=== PATIENT | female | born 1965 | race Caucasian/White ===

== ENCOUNTER 2018-10-17 08:07 | Day surgery (SDC) | payer BC ==
[2018-10-16 14:44] LABS: CHLORIDE,CL 104 mmol/L (98-107); SODIUM,NA 141 mmol/L (136-145)
[~2018-10-17 08:07] MED LIST: Fluorescein 5 ML Vial ONE; Lactated Ringers 1,000 ML IV SCH; Sodium Chloride 0.9% 10 ML SDV IV PRN; Sodium Chloride 0.9% 10 ML Syringe FLUSH PRN; Sodium Chloride 0.9% 2.5 ML Syringe FLUSH PRN; ceFAZolin 2 GM in Premix Bag 1 BAG IV ONE
[2018-10-17] MEDS ORDERED: Propofol 200 MG/20 ML SDV ONE ×2 (09:09→11:49)
[2018-10-17] MEDS ORDERED: fentaNYL 100 MCG/2 ML SDV ONE ×3 (09:10→11:58)
[2018-10-17] MEDS ORDERED: Midazolam 1 MG/ML 2 ML SDV ONE (09:10)
--- NOTE | 2018-10-17 09:35 | PCM.PREANE ---
Preanesthetic Assessment - Anesthesia/Transfusion/Family Hx Anesthesia History: Prior Anesthesia Without Reaction Family History of Anesthesia Reaction: No Transfusion History: No Prior Transfusion(s) - Review of Systems General: No Symptoms Pulmonary: No Symptoms Cardiovascular: No Symptoms Gastrointestinal: No Symptoms Neurological: No Symptoms Other: Reports: None - Physical Assessment NPO Status Date: 10/16/18 NPO Status Time: 20:00 O2 Sat by Pulse Oximetry: 96 Respiratory Rate: 18 Vital Signs: Last Vital Signs Temp 96.8 F 10/17/18 08:45 Pulse 86 10/17/18 08:45 Resp 18 10/17/18 08:45 BP 141/71 H 10/17/18 08:45 Pulse Ox 96 10/17/18 08:45 Height: 5 ft 7 in Weight: 97.069 kg ASA Class: 1 Mental Status: Alert & Oriented x3 Airway Class: Mallampati = 1 Dentition: Reports: Normal Dentition ROM/Head Extension: Full Lungs: Clear to Auscultation, Normal Respiratory Effort Cardiovascular: Regular Rate, Regular Rhythm - Lab Values: Laboratory Last Values WBC 4.55 K/uL (4.0-11.0) 10/16/18 14:05 RBC 4.93 M/uL (4.30-5.90) 10/16/18 14:05 Hgb 15.2 g/dL (12.0-16.0) 10/16/18 14:05 Hct 44.9 % (36.0-46.0) 10/16/18 14:05 MCV 91.1 fL (80.0-98.0) 10/16/18 14:05 MCH 30.8 pg (27.0-32.0) 10/16/18 14:05 MCHC 33.9 g/dL (31.0-37.0) 10/16/18 14:05 RDW Std Deviation 42.7 fl (28.0-62.0) 10/16/18 14:05 RDW Coeff of Eder 13 % (11.0-15.0) 10/16/18 14:05 Plt Count 225 K/uL (150-400) 10/16/18 14:05 MPV 9.90 fL (7.40-12.00) 10/16/18 14:05 Nucleated RBC % 0.0 /100WBC 10/16/18 14:05 Nucleated RBCs # 0 K/uL 10/16/18 14:05 Sodium 141 mmol/L (136-145) 10/16/18 14:05 Potassium 4.3 mmol/L (3.5-5.1) 10/16/18 14:05 Chloride 104 mmol/L (98-107) 10/16/18 14:05 Carbon Dioxide 25.5 mmol/L (21.0-32.0) 10/16/18 14:05 BUN 19 mg/dL (7.0-18.0) H 10/16/18 14:05 Creatinine 0.8 mg/dL (0.6-1.0) 10/16/18 14:05 Est Cr Clr Drug Dosing 80.90 mL/min 10/16/18 14:05 Estimated GFR (MDRD) > 60.0 ml/min 10/16/18 14:05 Glucose 92 mg/dL (74-106) 10/16/18 14:05 Calcium 8.2 mg/dL (8.5-10.1) L 10/16/18 14:05 HCG, Qual NEGATIVE (NEG) 10/16/18 14:05 Blood Type A POSITIVE 10/16/18 14:05 Antibody Screen NEGATIVE 10/16/18 14:05 - Allergies Allergies/Adverse Reactions: Allergies Allergy/AdvReac Type Severity Reaction Status Date / Time shrimp Allergy Difficulty Verified 10/14/18 09:53 Swallowing - Blood Blood Available: No - Anesthesia Plan Pre-Op Medication Ordered: None - Acknowledgements Anesthesia Type Planned: General Anesthesia Pt an Appropriate Candidate for the Planned Anesthesia: Yes Alternatives and Risks of Anesthesia Discussed w Pt/Guardian: Yes Pt/Guardian Understands and Agrees with Anesthesia Plan: Yes PreAnesthesia Questionnaire HEENT History: Reports: Other (See Below) Other HEENT History: wears glasses/contact lenses Cardiovascular History: Reports: None Respiratory History: Reports: None Gastrointestinal History: Reports: GERD Genitourinary History: Reports: Urinary Incontinence 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: Musculoskeletal History: Reports: Fracture Other Musculoskeletal History: hx fx left tib/fib Neurological History: Reports: None Psychiatric History: Reports: None Endocrine/Metabolic History: Reports: Obesity/BMI 30+ Hematologic History: Reports: None Immunologic History: Reports: None Oncologic (Cancer) History: Reports: None Dermatologic History: Reports: None - Infectious Disease History Infectious Disease History: Reports: None - Past Surgical History Head Surgeries/Procedures: Reports: None Cardiovascular Surgical History: Reports: None Respiratory Surgical History: Reports: None GI Surgical History: Reports: None Female Surgical History: Reports: Section, Hysterectomy, Salpingo- Oophorectomy Other Female Surgeries/Procedures: [id number] of enterocele/rectocele in Jul Endocrine Surgical History: Reports: None Neurological Surgical History: Reports: None Musculoskeletal Surgical History: Reports: ORIF Other Musculoskeletal Surgeries/Procedures:: states hx of left tib/fib fx, surgical repair with hardware inserted Oncologic Surgical History: Reports: None Dermatological Surgical History: Reports: None - SUBSTANCE USE Smoking Status *Q: Never Smoker Recreational Drug Use History: No - HOME MEDS Home Medications: Home Meds Estradiol 1 mg PO DAILY 04/05/16 [History] Multivitamin [Multivitamins] 1 tab PO DAILY 04/05/16 [History] Tolterodine [Detrol LA 24 Hr] 4 mg PO DAILY 04/05/16 [History] - CURRENT (IN HOUSE) MEDS Current Meds: Current Medications Lactated Ringer's (Ringers, Lactated) 1,000 mls @ 100 mls/hr IV ASDIRECTED DORIE Last Admin: 10/17/18 09:00 Dose: 100 mls/hr Sodium Chloride (Saline Flush) 10 ml FLUSH ASDIRECTED PRN PRN Reason: Keep Vein Open Sodium Chloride (Saline Flush) 2.5 ml FLUSH ASDIRECTED PRN PRN Reason: Keep Vein Open Sodium Chloride (Normal Saline) 10 ml IV ASDIRECTED PRN PRN Reason: IV Use Discontinued Medications Fentanyl (Sublimaze) Confirm Administered Dose 100 mcg .ROUTE .STK-MED ONE Stop: 10/17/18 09:11 Fluorescein Sodium (Ak-Fluor) Confirm Administered Dose 5 ml .ROUTE .STK-MED ONE Stop: 10/17/18 08:08 Cefazolin Sodium/Dextrose 2 gm (/ Premix) 50 mls @ 100 mls/hr IV ONETIME ONE Stop: 10/16/18 13:57 Midazolam HCl (Versed 1 Mg/Ml) Confirm Administered Dose 2 mg .ROUTE .STK-MED ONE Stop: 10/17/18 09:11 Propofol (Diprivan 20 Ml) Confirm Administered Dose 200 mg .ROUTE .STK-MED ONE Stop: 10/17/18 09:10
[2018-10-17] MEDS ORDERED: Dexamethasone 4 MG/ML 5 ML MDV ONE (10:47)
[2018-10-17] MEDS ORDERED: Ondansetron 4 MG/2 ML SDV IVPUSH PRN (12:23)
[2018-10-17] MEDS ORDERED: Acetaminophen/oxyCODONE 325-5 MG Tab PO PRN (12:23)
[2018-10-17] MEDS ORDERED: Promethazine 25 MG/ML SDV IM PRN (12:23)
[2018-10-17] MEDS ORDERED: Ketorolac 30 MG/ML SDV IVPUSH ONE (12:23)
[2018-10-17] MEDS ORDERED: Morphine 4 MG/ML Syringe IVPUSH PRN (12:23)
[2018-10-17] MEDS ORDERED: Ketorolac 30 MG/ML SDV IVPUSH PRN (12:23)
--- NOTE | 2018-10-17 12:28 | PCM.OPNOTE ---
- General Post-Op/Procedure Note Date of Surgery/Procedure: 10/17/18 Operative Procedure(s): Ant and Post Repair cystoscopy. Post-Op Diagnosis: Same Anesthesia Technique: General ET Tube Primary Surgeon: Donnell Duggan EBL in mLs: 600 Complications: None Condition: Good Free Text/Narrative:: Intake & Output 10/16/18 10/17/18 10/17/18 22:59 06:59 14:59 Output Total 150 Balance -150
--- NOTE | 2018-10-17 14:37 | PCM.POSTAN ---
POST ANESTHESIA ASSESSMENT - MENTAL STATUS Mental Status: Alert, Oriented - CARDIOVASCULAR CV Status: Pulse Rate WNL, Blood Pressure Stable - GASTROINTESTINAL GI Status: No Symptoms - POST OP HYDRATION Hydration Status: Adequate & Stable
[2018-10-17] MEDS: Acetaminophen/oxyCODONE 325-5 MG Tab PO PRN (18:12)
[2018-10-18 06:49] LABS: CHLORIDE,CL 106 mmol/L (98-107); SODIUM,NA 140 mmol/L (136-145)
[2018-10-18] MEDS: Acetaminophen/oxyCODONE 325-5 MG Tab PO PRN (08:17)
--- NOTE | 2018-10-18 09:12 | PCM.SURGPN ---
- General Info Date of Service: 10/18/18 POD#: 1 Functional Status: Reports: Pain Controlled - Review of Systems General: Reports: No Symptoms HEENT: Reports: No Symptoms Pulmonary: Reports: No Symptoms Cardiovascular: Reports: No Symptoms Gastrointestinal: Reports: No Symptoms Genitourinary: Reports: No Symptoms Musculoskeletal: Reports: No Symptoms Skin: Reports: No Symptoms Neurological: Reports: No Symptoms Psychiatric: Reports: No Symptoms - Patient Data Vitals - Most Recent: Last Vital Signs Temp 36.0 C 10/18/18 08:20 Pulse 85 10/18/18 08:20 Resp 16 10/18/18 08:20 BP 116/58 L 10/18/18 08:20 Pulse Ox 96 10/18/18 08:20 Weight - Most Recent: 97.069 kg I&O - Last 24 Hours: Intake & Output 10/17/18 10/18/18 10/18/18 22:59 06:59 14:59 Intake Total 1070 1200 Output Total 250 1400 Balance 820 -200 Lab Results Last 24 Hrs: Laboratory Results - last 24 hr 10/18/18 10/18/18 Range/Units 06:00 06:00 WBC 10.36 (4.0-11.0) K/uL RBC 4.17 L (4.30-5.90) M/uL Hgb 12.7 (12.0-16.0) g/dL Hct 38.1 (36.0-46.0) % MCV 91.4 (80.0-98.0) fL MCH 30.5 (27.0-32.0) pg MCHC 33.3 (31.0-37.0) g/dL RDW Std Deviation 42.6 (28.0-62.0) fl RDW Coeff of Eder 13 (11.0-15.0) % Plt Count 232 (150-400) K/uL MPV 10.00 (7.40-12.00) fL Neut % (Auto) 71.8 (48.0-80.0) % Lymph % (Auto) 18.0 (16.0-40.0) % Orange % (Auto) 9.7 (0.0-15.0) % Eos % (Auto) 0.4 (0.0-7.0) % Baso % (Auto) 0.1 (0.0-1.5) % Neut # (Auto) 7.4 H (1.4-5.7) K/uL Lymph # (Auto) 1.9 (0.6-2.4) K/uL Orange # (Auto) 1.0 H (0.0-0.8) K/uL Eos # (Auto) 0.0 (0.0-0.7) K/uL Baso # (Auto) 0.0 (0.0-0.1) K/uL Nucleated RBC % 0.0 /100WBC Nucleated RBCs # 0 K/uL Sodium 140 (136-145) mmol/L Potassium 4.1 (3.5-5.1) mmol/L Chloride 106 (98-107) mmol/L Carbon Dioxide 27.3 (21.0-32.0) mmol/L BUN 11 (7.0-18.0) mg/dL Creatinine 0.8 (0.6-1.0) mg/dL Est Cr Clr Drug Dosing 80.90 mL/min Estimated GFR (MDRD) > 60.0 ml/min Glucose 107 H (74-106) mg/dL Calcium 8.3 L (8.5-10.1) mg/dL Med Orders - Current: Current Medications Lactated Ringer's (Ringers, Lactated) 1,000 mls @ 100 mls/hr IV ASDIRECTED [facility] Last Admin: 10/17/18 09:00 Dose: 100 mls/hr Ketorolac Tromethamine (Toradol) 30 mg IVPUSH Q6H PRN PRN Reason: Pain (severe 7-10) Stop: 10/22/18 12:24 Last Admin: 10/17/18 15:30 Dose: 30 mg Morphine Sulfate (Morphine) 4 mg IVPUSH Q2H PRN PRN Reason: Pain (severe 7-10) Ondansetron HCl (Zofran) 4 mg IVPUSH Q6H PRN PRN Reason: Nausea/Vomiting Oxycodone/Acetaminophen (Percocet 325-5 Mg) 1 tab PO Q4H PRN PRN Reason: Pain (moderate 4-6) Oxycodone/Acetaminophen (Percocet 325-5 Mg) 2 tab PO Q4H PRN PRN Reason: Pain (moderate 4-6) Last Admin: 10/18/18 08:17 Dose: 2 tab Promethazine HCl (Phenergan) 25 mg IM Q6H PRN PRN Reason: Nausea/Vomiting Sodium Chloride (Saline Flush) 10 ml FLUSH ASDIRECTED PRN PRN Reason: Keep Vein Open Sodium Chloride (Saline Flush) 2.5 ml FLUSH ASDIRECTED PRN PRN Reason: Keep Vein Open Sodium Chloride (Normal Saline) 10 ml IV ASDIRECTED PRN PRN Reason: IV Use Discontinued Medications Dexamethasone (Dexamethasone) Confirm Administered Dose 20 mg .ROUTE .STK-MED ONE Stop: 10/17/18 10:48 Fentanyl (Sublimaze) Confirm Administered Dose 100 mcg .ROUTE .STK-MED ONE Stop: 10/17/18 09:11 Fentanyl (Sublimaze) Confirm Administered Dose 100 mcg .ROUTE .STK-MED ONE Stop: 10/17/18 10:46 Fentanyl (Sublimaze) Confirm Administered Dose 100 mcg .ROUTE .STK-MED ONE Stop: 10/17/18 11:59 Fluorescein Sodium (Ak-Fluor) Confirm Administered Dose 5 ml .ROUTE .STK-MED ONE Stop: 10/17/18 08:08 Cefazolin Sodium/Dextrose 2 gm (/ Premix) 50 mls @ 100 mls/hr IV ONETIME ONE Stop: 10/16/18 13:57 Last Admin: 10/17/18 17:52 Dose: Not Given Ketorolac Tromethamine (Toradol) 30 mg IVPUSH ONETIME ONE Stop: 10/17/18 12:24 Last Admin: 10/17/18 15:34 Dose: Not Given Midazolam HCl (Versed 1 Mg/Ml) Confirm Administered Dose 2 mg .ROUTE .STK-MED ONE Stop: 10/17/18 09:11 Propofol (Diprivan 20 Ml) Confirm Administered Dose 200 mg .ROUTE .STK-MED ONE Stop: 10/17/18 09:10 Propofol (Diprivan 20 Ml) Confirm Administered Dose 200 mg .ROUTE .STK-MED ONE Stop: 10/17/18 11:50 - Exam Wound/Incisions: Healing Well General: Alert, Oriented HEENT: Pupils Equal Neck: Supple Lungs: Clear to Auscultation, Normal Respiratory Effort Cardiovascular: Regular Rate, Regular Rhythm GI/Abdominal Exam: Normal Bowel Sounds, Soft, Non-Tender, No Organomegaly, No Distention, No Abnormal Bruit, No Mass, Pelvis Stable Extremities: Normal Inspection, Normal Range of Motion, Non-Tender, No Pedal Edema, Normal Capillary Refill Skin: Warm, Dry, Intact Neurological: No New Focal Deficit Psy/Mental Status: Alert, Normal Affect, Normal Mood - Problem List Review Problem List Initiated/Reviewed/Updated: Yes - My Orders Last 24 Hours: Active Orders 24 hr Category Date Time Status Patient Status [ADT] Routine ADT 10/17/18 12:24 Active Antiembolic Devices [RC] Q12H Care 10/17/18 12:25 Active Notify Provider Vital Signs [RC] ASDIRECTED Care 10/17/18 12:24 Active Oxygen Therapy [RC] ASDIRECTED Care 10/17/18 12:24 Active RT Incentive Spirometry [RC] Q2HWA Care 10/17/18 12:24 Active Up With Assistance [RC] PER UNIT ROUTINE Care 10/17/18 12:24 Active Up ad Keysha [RC] PER UNIT ROUTINE Care 10/17/18 12:24 Active Urinary Catheter Removal [RC] Per Unit Routine Care 10/17/18 12:24 Active Regular Diet [DIET] Diet 10/17/18 Dinner Active Acetaminophen/oxyCODONE [Percocet 325-5 MG] Med 10/17/18 12:23 Active 1 tab PO Q4H PRN Acetaminophen/oxyCODONE [Percocet 325-5 MG] Med 10/17/18 12:23 Active 2 tab PO Q4H PRN Ketorolac [Toradol] Med 10/17/18 12:23 Active 30 mg IVPUSH Q6H PRN Morphine Med 10/17/18 12:23 Active 4 mg IVPUSH Q2H PRN Ondansetron [Zofran] Med 10/17/18 12:23 Active 4 mg IVPUSH Q6H PRN Promethazine [Phenergan] Med 10/17/18 12:23 Active 25 mg IM Q6H PRN Peripheral IV Discontinue [OM.PC] Routine Oth 10/17/18 12:24 Ordered Sequential Compression Device [OM.PC] Per Unit Routine Oth 10/17/18 12:24 Ordered Resuscitation Status Routine Resus Stat 10/17/18 12:23 Ordered Medication Orders Lactated Ringer's (Ringers, Lactated) 1,000 mls @ 100 mls/hr IV ASDIRECTED [facility] Last Admin: 10/17/18 09:00 Dose: 100 mls/hr Ketorolac Tromethamine (Toradol) 30 mg IVPUSH Q6H PRN PRN Reason: Pain (severe 7-10) Stop: 10/22/18 12:24 Last Admin: 10/17/18 15:30 Dose: 30 mg Morphine Sulfate (Morphine) 4 mg IVPUSH Q2H PRN PRN Reason: Pain (severe 7-10) Ondansetron HCl (Zofran) 4 mg IVPUSH Q6H PRN PRN Reason: Nausea/Vomiting Oxycodone/Acetaminophen (Percocet 325-5 Mg) 1 tab PO Q4H PRN PRN Reason: Pain (moderate 4-6) Oxycodone/Acetaminophen (Percocet 325-5 Mg) 2 tab PO Q4H PRN PRN Reason: Pain (moderate 4-6) Last Admin: 10/18/18 08:17 Dose: 2 tab Admin: 10/17/18 18:12 Dose: 2 tab Promethazine HCl (Phenergan) 25 mg IM Q6H PRN PRN Reason: Nausea/Vomiting Sodium Chloride (Saline Flush) 10 ml FLUSH ASDIRECTED PRN PRN Reason: Keep Vein Open Sodium Chloride (Saline Flush) 2.5 ml FLUSH ASDIRECTED PRN PRN Reason: Keep Vein Open Sodium Chloride (Normal Saline) 10 ml IV ASDIRECTED PRN PRN Reason: IV Use - Assessment Assessment (Free Text/Narrative):: Status post anterior posterior repair vaginal pack is removed without any problem there is no active bleeding Mckeon catheter will be removed today and then will observe the patient until she would be able to void spontaneously and then sent her home today
[2018-10-18 12:09] VITALS: BP 116/71
--- NOTE | 2018-10-18 15:57 | OR ---
SURGEON: Donnell Duggan MD DATE OF PROCEDURE: PREOPERATIVE DIAGNOSIS: Pelvic relaxation, mainly cystocele and rectocele. POSTOPERATIVE DIAGNOSIS: Pelvic relaxation, mainly cystocele and rectocele. OPERATION PERFORMED: Repair of the rectocele and enterocele. The enterocele is with Magali plication and rectocele by using [place] tissue for repair. 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 ANESTHESIA: General endotracheal intubation. ESTIMATED BLOOD LOSS: 500 mL. COMPLICATIONS: None. FINDING: Rectocele and enterocele. INDICATION: The patient has rectocele and cystocele, both symptomatic, with both of them she previously had repair for this 3 years ago and it has failed. PROCEDURE IN DETAIL: The patient was brought to the OR properly identified and after adequate level of anesthesia, the patient was placed in lithotomy position, prepped and draped in sterile fashion as usual. Straight catheter was used to empty the bladder and then the anterior vaginal wall was opened from the vaginal vault to the urethra and dissected laterally and away from the bladder and then Magali plication in two layer was performed using 2-0 Vicryl interrupted suture utilizing the endopelvic fascia. Once it was performed, the excess vaginal mucosa and the anterior vaginal wall were trimmed and the vaginal cuff was closed with 2-0 Vicryl continuous interlocking for hemostasis. In the same manner, the posterior vaginal wall was opened in the midline, dissected laterally, the rectocele defect identified and then utilizing the [place] tissue to repair the endopelvic fascia and the levator ani on both sides, and they were approximated with interrupted [id number] sutures 3-0 Vicryl to close the rectocele defect. Once that was done, then the small amount of vaginal mucosa was trimmed posteriorly and the vaginal mucosa posteriorly closed with 2-0 Vicryl continuous interlocking for hemostasis. After that, the vaginal pack was placed in place and Mckeon catheter was placed and prior to doing that, cystoscopy was performed. The bladder was intact. Both ureteric orifices seen with the dye coming from both openings. Satisfied with these findings, the procedure ended and the instrument and sponge counts were correct. The patient tolerated the procedure well and went to recovery room in stable general condition. AZUL / SELENA /[id number]
== END 2018-10-18 12:00 | disposition home or self-care (01) ==
LOC: MW.SDS 08:07 → MW.MS 14:11 → MW.SDS 10-18 12:00
PROVIDERS: ATTEND Obstetrics & Gynecology
DX: N81.10 Cystocele, unspecified (principal); N81.6 Rectocele; N81.5 Vaginal enterocele; N81.89 Other female genital prolapse; E89.40 Asymptomatic postprocedural ovarian failure; N39.3 Stress incontinence (female) (male); Z87.440 Personal history of urinary (tract) infections; Z90.710 Acquired absence of both cervix and uterus; Z91.013 Allergy to seafood; Z79.890 Hormone replacement therapy
CPT/HCPCS: 36415; 57260; 80048; 84703; 85025; 85027; 86850; 86900; 86901; A9270; C1763; J1100; J1885; J2250; J2704; J3010; J7120

== ENCOUNTER 2023-02-08 10:04 | Day surgery (SDC) | payer BC ==
[~2023-02-08 10:04] MED LIST changes: +Albuterol 0.083% 2.5 MG/3 ML Neb Soln NEB PRN; -Fluorescein 5 ML Vial ONE; +HYDROmorphone 1 MG/ML Syringe IVPUSH PRN; -Lactated Ringers 1,000 ML IV SCH; +Metoclopramide 10 MG/2 ML SDV IVPUSH PRN; +Morphine 2 MG/ML SYRINGE IVPUSH PRN; +Naloxone 0.4 MG/ML SDV IVPUSH PRN; +Ondansetron 4 MG/2 ML SDV IVPUSH PRN; +Propofol 200 MG/20 ML SDV ONE; +Scopolamine 1.5 MG Transdermal Patch TOP ONE; -Sodium Chloride 0.9% 10 ML SDV IV PRN; -Sodium Chloride 0.9% 10 ML Syringe FLUSH PRN; -Sodium Chloride 0.9% 2.5 ML Syringe FLUSH PRN; -ceFAZolin 2 GM in Premix Bag 1 BAG IV ONE; +droPERidol 5 MG/2 ML SDV IVPUSH PRN; +fentaNYL 50 MCG/ML SDV IVPUSH PRN; +propofoL 50 ML ONE
[2023-02-08] MEDS ORDERED: Lactated Ringers 1,000 ML IV SCH (11:00)
[2023-02-08] MEDS ORDERED: fentaNYL 100 MCG/2 ML SDV ONE (11:19)
[2023-02-08] MEDS ORDERED: propofoL 50 ML ONE (11:37)
[2023-02-08 12:45] VITALS: BP 143/76; PULSE 71
== END 2023-02-08 13:13 | disposition home or self-care (01) ==
LOC: MW.SDS 10:04
PROVIDERS: ATTEND Obstetrics & Gynecology
DX: N81.10 Cystocele, unspecified (principal); N81.89 Other female genital prolapse; E66.9 Obesity, unspecified; K21.9 Gastro-esophageal reflux disease without esophagitis; Z90.710 Acquired absence of both cervix and uterus; Z91.013 Allergy to seafood; Z68.38 Body mass index [BMI] 38.0-38.9, adult
CPT/HCPCS: 57240; A9270; J0131; J2704; J3010; J7030; J7120